=== PATIENT | male | born 1945 | race Caucasian/White ===

== ENCOUNTER 2018-07-03 05:40 | Day surgery (SDC) | payer MEDICARE, BC ==
[~2018-07-03] VITALS: Ht 177.8 cm; Wt 119.5 kg
[~2018-07-03 05:40] MED LIST: ALDACTONE25 MG PO; ASMANEX TW0.22 MG/A1 IH; BETAMETHASONE D0.05% TP; BETAMETHASONE O15 GM TP; COMBIVENT INH14.7 GM IH; COUMADIN 1MG1 MG/TAB PO; COZAAR100 MG PO; CRESTOR20 MG PO; DEPO-TESTOS200 MG/M1 IM; ENBREL50 MG/ML SC; FORADIL AERO0.012 MG IH; FUROCOT40 MG PO; HYDROCODONE/APAP PO; LEVOTHYROXINE0.05 MG PO; LORATADINE10 M1 PO; MUCINEX 60600 MG/TA1 PO; MULTAQ400 M1 PO; NASAREL SPRAY25 ML NS; OMEGA 31000 MG PO; OMEPRAZOLE D/R20 MG PO; OMNIPRED 5 ML5 ML OP; SINGULAIR10 MG PO; SLO NIACIN750 MG PO; VISION VITAMINS1 TAB PO; VITAMIN D32000 IU PO; ZYLOPRIM 100MG100 MG PO
[2018-07-03 06:26] VITALS: BP 156/61; PULSE 79; TEMP 99.6
[2018-07-03] MEDS ORDERED: LOVENOX 6060 MG/0.6 SQ (06:49)
[2018-07-03] MEDS ORDERED: PRIL40 PO (06:52)
[2018-07-03] MEDS ORDERED: SYNTHROID0.05 MG/TA PO (06:52)
[2018-07-03] MEDS ORDERED: ALDACTONE 25MG25 M1 PO (06:53)
[2018-07-03] MEDS ORDERED: BUMEX 1MG TA1 MG/TA1 PO (06:54)
[2018-07-03] MEDS ORDERED: ASMANEX HF200 MCG/Ac IH (06:57)
[2018-07-03] MEDS ORDERED: XALATAN EYE DROPS OD (06:58)
[2018-07-03] MEDS ORDERED: TRUSOPT OCUMETE10 ML (06:59)
[2018-07-03] MEDS ORDERED: COUMADIN 6MG6 MG/TAB PO (07:01)
[2018-07-03] MEDS ORDERED: CARDIZEM CD 24240 MG PO (07:01)
[2018-07-03] MEDS ORDERED: LIPITOR 40MG TA40 MG PO (07:02)
[2018-07-03] MEDS ORDERED: ZYLOPRIM 300MG300 MG PO (07:02)
[2018-07-03] MEDS ORDERED: MULTI VITAMINS1 TAB PO (07:03)
[2018-07-03] MEDS ORDERED: IRON 27 MG PO (07:04)
[2018-07-03] MEDS ORDERED: PRESERVISION1 SGL PO (07:05)
[2018-07-03] MEDS ORDERED: VITAMIN D32000 I1 PO (07:05)
[2018-07-03] MEDS ORDERED: MASON NATURAL1200 MG PO (07:06)
[2018-07-03] MEDS ORDERED: XANAX 1MG1 MG PO (07:07)
[2018-07-03] MEDS ORDERED: ULTRAM 50MG TAB50 MG PO (07:07)
[2018-07-03] MEDS ORDERED: NORCO 325 MG-101 TAB PO (07:07)
[2018-07-03] MEDS ORDERED: BACTROBAN15 GM TOP (07:09)
[2018-07-03] MEDS ORDERED: SYNALAR CR0.115GM TP (07:10)
[2018-07-03] MEDS ORDERED: NYSTATIN100000 U/G TOP (07:11)
[2018-07-03] MEDS ORDERED: DIPROLENE 0.05%50 GM TP (07:12)
[2018-07-03] MEDS ORDERED: COMBIRESP IH (07:15)
[2018-07-03 11:05] VITALS: BP 131/55; PULSE 74
[2018-07-03 11:20] VITALS: BP 146/66; PULSE 71; TEMP 98.4
[2018-07-03 11:32] VITALS: TEMP 98.5
[2018-07-03 11:35] VITALS: BP 153/60; PULSE 74
[2018-07-03 12:00] VITALS: BP 140/64; PULSE 73
== END 2018-07-03 13:10 | disposition home or self-care (01) ==
LOC: SDCO 05:40
DX: E88.1 Lipodystrophy, not elsewhere classified (principal); I10 Essential (primary) hypertension; I48.91 Unspecified atrial fibrillation; J44.9 Chronic obstructive pulmonary disease, unspecified; L40.9 Psoriasis, unspecified; G47.33 Obstructive sleep apnea (adult) (pediatric); M19.90 Unspecified osteoarthritis, unspecified site; G89.29 Other chronic pain; K21.9 Gastro-esophageal reflux disease without esophagitis; E03.9 Hypothyroidism, unspecified; D50.9 Iron deficiency anemia, unspecified; M10.9 Gout, unspecified; Z95.0 Presence of cardiac pacemaker
CPT/HCPCS: J0690; J1720; J3010; J7120